=== PATIENT | female | born 1940 | race Caucasian/White ===

== ENCOUNTER 2019-03-17 12:39 | Emergency (ER) | payer MEDICARE, OTHER ==
[~2019-03-17] VITALS: Ht 157.5 cm; Wt 51.7 kg
--- NOTE | 2019-03-17 12:45 | NUR ---
Pt. ambulated into ED w/ c/o facial laceration to L side below orbital socket that occurred , c/o soreness/stiffness of neck/shoulders/upper back, A/Ox4, RR even and unlabored, speaks in clear and complete sentences, bed in low position,
--- NOTE | 2019-03-17 13:03 | NUR ---
Pt out of ER for CT.
--- NOTE | 2019-03-17 13:25 | NUR ---
Pt. taken off unit for CT via wheelchair by Rad. tech.
--- NOTE | 2019-03-17 14:00 | NUR ---
Patient discharged to home in stable conditon. Written and verbal after care instructions given. Patient verbalizes understanding of instructions. Pt. d/c w/ prescription per MD order, d/c papers signed, all belongings w/ pt., ID band removed, ambulated off unit w/ steady gait, NAD
== END 2019-03-17 14:02 | disposition home or self-care (01) ==
LOC: ER 12:39
DX: S01.81XA Laceration without foreign body of other part of head, initial encounter (principal); M54.2 Cervicalgia; M54.6 Pain in thoracic spine; M25.511 Pain in right shoulder; M25.512 Pain in left shoulder; W19.XXXA Unspecified fall, initial encounter; Y93.89 Activity, other specified; Y92.89 Other specified places as the place of occurrence of the external cause; Y99.8 Other external cause status
CPT/HCPCS: 70450; 72125; A4663